=== PATIENT | male | born 1930 | race Caucasian/White ===

== ENCOUNTER 2016-12-21 14:00 | Emergency (ER) | payer OTHER ==
[2016-12-21 14:30] VITALS: TEMP 97.8; BMI 22.9
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
[2016-12-21 17:45] LABS: BASOPHIL 0.9 % (0-2.0); MCH 20.4 pg (25.7-33.7); MCHC 31.4 g/dl (32.0-35.9); MEAN PLT VOLUME 8.7 fl (7.5-11.1); NEUTROPHILS 56.3 % (42.8-82.8); PLATELET COUNT 161 K/MM3 (134-434); RDW 18.7 % (11.9-15.9); WHITE BLOOD COUNT 7.9 K/mm3 (4.0-10.0)
[2016-12-21 18:08] LABS: ALK PHOS 100 U/L (45-117); ANION GAP 5 (8-16); BILIRUBIN,TOTAL 1.1 mg/dL (0.2-1.0); CALCIUM 9.2 mg/dL (8.5-10.1); CO2 30 mmol/L (21-32); CREATININE 1.8 mg/dL (0.7-1.3); GLUCOSE,RANDOM 89 mg/dL (74-106); SGOT/AST 15 U/L (15-37); SGPT/ALT 18 U/L (12-78); TOT PROT 7.3 g/dl (6.4-8.2)
[2016-12-21 18:10] LABS: CPK 86 IU/L (39-308); TROPONIN I < 0.02 ng/ml (0.00-0.05)
[2016-12-21 18:24] LABS: PLATELET ESTIMATE ADEQUATE (NORMAL)
[2016-12-21 18:25] LABS: HYPOCHROMIA 3+; MACROCYTOSIS 1+; MICROCYTOSIS 1+; POIKILOCYTOSIS 1+; POLYCHROMASIA RARE
[2016-12-21 18:26] LABS: OVALOCYTE 1+
[2016-12-21 18:52] VITALS: BP 150/77; PULSE 55
--- NOTE | 2016-12-23 21:44 | EKG ---
Test Reason : Blood Pressure : / mmHG Vent. Rate : 049 BPM Atrial Rate : 049 BPM P-R Int : 146 ms QRS Dur : 070 ms QT Int : 434 ms P-R-T Axes : 000 028 048 degrees QTc Int : 392 ms POOR DATA QUALITY, INTERPRETATION MAY BE ADVERSELY AFFECTED SINUS BRADYCARDIA OTHERWISE NORMAL ECG WHEN COMPARED WITH ECG OF 25-JUL-2003 08:44, NO SIGNIFICANT CHANGE WAS FOUND Confirmed by OCTAVIANO PAULSON, TERESSA ([id number]) on 12/23/2016 9:44:26 PM Referred By: Confirmed By:TERESSA BRUMFIELD MD
== END 2016-12-21 18:53 | disposition home or self-care (01) ==
LOC: JERFT 14:00 → JER 14:00
DX: S29.8XXA Other specified injuries of thorax, initial encounter (principal); S21.102A Unspecified open wound of left front wall of thorax without penetration into thoracic cavity, initial encounter; W51.XXXA Accidental striking against or bumped into by another person, initial encounter; Y93.89 Activity, other specified; Y92.89 Other specified places as the place of occurrence of the external cause; I10 Essential (primary) hypertension; Z87.442 Personal history of urinary calculi
CPT/HCPCS: 36415; 71101-TC; 80053; 84484; 85025; 93005; 93010; 99283-25

== ENCOUNTER 2017-05-07 12:25 | Emergency (ER) | payer OTHER ==
[2017-05-07 12:42] VITALS: BP 146/59; PULSE 66; TEMP 97.6; BMI 22.9
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
== END 2017-05-07 14:22 | disposition home or self-care (01) ==
LOC: JERFT 12:25
CPT/HCPCS: 99281-25

== ENCOUNTER 2017-10-11 23:05 | Inpatient (IN) | payer OTHER ==
--- NOTE | 2017-10-11 23:59 | PDOC ---
History of Present Illness - General History Source: Patient Exam Limitations: No Limitations - History of Present Illness Initial Comments: 10/12/17 01:26 The patient is a 87 year old male with past medical history of HTN, OA (L. knee) , renal insufficiency and eczema presents to the emergency department via EMS s/ p a fall at 10:00 pm today. The patient reports he was trying to get up from the chair after sleeping when he tripped on shoelace leading to the fall. The patient reports pain to the L. knee, hip and foot. The patient states s/p to the fall he was unable to move, which has improved since. The patient states he called [phone] who assisted him w/ an ambulance. The patient reports associated concern of nausea. The patient states a history of chronic dehydration even after drinking 4 cups of water, no relief. The patient on baseline can ambulate without assist and lives independently. Denies fever, chills, cough or headache. Denies chest pain or sob. Denies loss of conscious. Denies head injury. Denies vomiting. Denies diarrhea or constipation. Denies dysuria, hematuria, frequency or urgency to urinate. Denies numbness, loss of sensation or tingling. Allergies: NKDA Surgical history: Cholecystectomy and Hernia repair. Social history: None reported Meds: Daily use of baby aspirin. PCP: Trish Ibrahim MD 10/12/17 03:44 <Farheen Ybarra - Last Filed: 10/12/17 03:44> - General History Source: Patient Exam Limitations: No Limitations <Juliana Chan - Last Filed: 10/12/17 04:19> - General Chief Complaint: Injury Stated Complaint: FALL Time Seen by Provider: 10/11/17 23:37 Past History <Farheen Ybarra - Last Filed: 10/12/17 03:44> - Past Medical History HTN: Yes Kidney Stones: Yes - Surgical History Cholecystectomy: Yes GI Surgery: Yes (hernia) - Suicide/Smoking/Psychosocial Hx Smoking History: Never smoked Have you smoked in the past 12 months: No Information on smoking cessation initiated: No Hx Alcohol Use: No Drug/Substance Use Hx: No Substance Use Type: None <Juliana Chan - Last Filed: 10/12/17 04:19> - Past Medical History Allergies/Adverse Reactions: Allergies Allergy/AdvReac Type Severity Reaction Status Date / Time No Known Allergies Allergy Verified 10/11/17 23:51 Home Medications: Ambulatory Orders Amlodipine Besylate 5 mg PO ASDIR 12/21/16 Losartan/Hydrochlorothiazide [Losartan-Hctz 50-12.5 mg Tab] 1 each PO ASDIR Tamsulosin HCl [Flomax] 0.4 mg PO DAILY 12/21/16 hydrOXYzine HCL [Atarax -] 10 mg PO TID 12/21/16 Review of Systems - Review of Systems Able to Perform ROS?: Yes Comments:: 10/12/17 01:28 GENERAL/CONSTITUTIONAL: No fever, no lethargy HEAD, EYES, EARS, NOSE AND THROAT: No eye discharge. No ear pain or discharge. No sore throat. CARDIOVASCULAR: No chest pain. RESPIRATORY: No cough, no wheezing. GASTROINTESTINAL: (+)nausea. No vomiting, diarrhea or constipation. GENITOURINARY: No dysuria, no change in urine output MUSCULOSKELETAL: (+) L. knee, hip and foot pain. SKIN: No rash NEUROLOGIC: No headache, loss of consciousness, irritability. ENDOCRINE: No increased thirst. No abnormal weight change. ALLERGIC/IMMUNOLOGIC: No hives or skin allergy. <Farheen Ybarra - Last Filed: 10/12/17 03:44> *Physical Exam - Vital Signs Last Vital Signs Temp Pulse Resp BP Pulse Ox 97.3 F L 68 20 153/78 100 10/11/17 23:20 10/11/17 23:20 10/11/17 23:20 10/11/17 23:20 10/11/17 23:20 - Physical Exam Comments: 10/12/17 01:30 GENERAL: The patient is in no acute distress. HEAD: Normal with no signs of trauma. EYES: PERRLA, EOMI, sclera anicteric, conjunctiva clear. ENT: Ears normal, nares patent, oropharynx clear without exudates. Moist mucous membranes. NECK: Normal range of motion, supple without lymphadenopathy, JVD, or masses. LUNGS: Breath sounds equal, clear to auscultation bilaterally. No wheezes, and no crackles. HEART:Regular rate and rhythm, normal S1 and S2 without murmur, rub or gallop. ABDOMEN: Soft, nontender, normoactive bowel sounds. No guarding, no rebound. No masses palpable. EXTREMITIES: (+) L. hip femur tenderness. Normal range of motion, no edema. No clubbing or cyanosis. No erythema. NEUROLOGICAL: Cranial nerves II through XII grossly intact. Normal speech. No focal neurological deficits. MUSCULOSKELETAL: Back non-tender to palpation, no CVA tenderness SKIN: Warm, Dry, normal turgor, no rashes or lesions noted. <Farheen Ybarra - Last Filed: 10/12/17 03:44> - Vital Signs Last Vital Signs Temp Pulse Resp BP Pulse Ox 97.3 F L 68 20 153/78 100 10/11/17 23:20 10/11/17 23:20 10/11/17 23:20 10/11/17 23:20 10/11/17 23:20 <Juliana Chan - Last Filed: 10/12/17 04:19> ED Treatment Course - LABORATORY CBC & Chemistry Diagram: 10/12/17 01:00 10/12/17 01:00 <Farheen Ybarra - Last Filed: 10/12/17 03:44> - LABORATORY CBC & Chemistry Diagram: 10/12/17 01:00 10/12/17 01:00 <Juliana Chan - Last Filed: 10/12/17 04:19> Medical Decision Making - Medical Decision Making 10/12/17 03:44 Mr Bond is an 87-year-old gentleman with a history of hypertension who presents emergency department with a complaint of left hip pain status post fall. Patient states he was in his usual state of health, attempted to get out of his chair when he was tripped on his shoelaces. He fell out of his chair and landed onto linoleum floors, striking his left hip. He's unsure if he had any head trauma. Denies a loss of consciousness. No nausea or vomiting subsequent to falling. Was unable to get up to a standing position EMS contacted On examination Left leg shortened and externally rotated RRR CTA Pelvis stable No abd tenderness or distention Will do: Labs Xray CT head and C spine Pain medications Suspect fracture 10/12/17 03:47 EKG: Sr rate of 56 bpm, axis nml, intervals nml, no ST elevations or depressions , t waves upright Laboratory Tests 10/12/17 10/12/17 01:00 01:00 WBC 11.5 H D Hgb 8.6 L D Hct 27.5 L Plt Count 145 Neutrophils % 89.1 H D Lymphocytes % 6.5 L D Sodium 141 Potassium 4.1 Chloride 106 Carbon Dioxide 29 BUN 40 H D Creatinine 1.9 H Random Glucose 132 H D Creatine Kinase 128 Troponin I < 0.02 Xray: left intertrochanteric hip fracture CXR: No pneumothorax, no effusion, no widened mediastinum Creatinine stable 10/12/17 03:[address] He Will admit to med surg Clinical Impression: left hip fracture, initial presentation 10/12/17 03:50 10/12/17 04:18 <Juliana Chan - Last Filed: 10/12/17 04:19> *DC/Admit/Observation/Transfer - Attestations Scribe Attestion: 10/12/17 01:31 Documentation prepared by Farheen Ybarra, acting as medical biller for Juliana Chan MD. <Farheen Ybarra - Last Filed: 10/12/17 03:44> - Discharge Dispostion Decision to Admit order: Yes <Juliana Chan - Last Filed: 10/12/17 04:19> Diagnosis at time of Disposition: Closed left hip fracture Qualifiers: Encounter type: initial encounter Qualified Code(s): S72.002A - Fracture of unspecified part of neck of left femur, initial encounter for closed fracture - Discharge Dispostion Condition at time of disposition: Stable
[2017-10-12] MEDS ORDERED: ACETAMINOPHEN 1000 MG/100 ML VIAL (NON FORMULARY) IVPB ONE ×2 (00:01→19:00)
[2017-10-12] MEDS ORDERED: ACETAMINOPHEN INJECTION 100 ML IVPB ONE ×2 (01:10→19:06)
[2017-10-12 01:25] LABS: BASO % 0.4 % (0-2.0); EOS % 0.4 % (0-4.5); HEMATOCRIT 27.5 % (35.4-49); HEMOGLOBIN 8.6 GM/dL (11.7-16.9); LYMPH % 6.5 % (8-40); MCH 20.4 pg (25.7-33.7); MCHC 31.4 g/dl (32.0-35.9); MEAN PLT VOLUME 8.4 fl (7.5-11.1); MONO % 3.6 % (3.8-10.2); NEUT % 89.1 % (42.8-82.8); PLATELET COUNT 145 K/MM3 (134-434); RBC 4.22 M/mm3 (4.00-5.60); RDW 18.4 % (11.9-15.9); WHITE BLOOD COUNT 11.5 K/mm3 (4.0-10.0)
[2017-10-12 01:42] LABS: ALBUMIN 3.7 g/dl (3.4-5.0); ANION GAP 6 (8-16); BLOOD UREA NITROGEN 40 mg/dL (7-18); CALCIUM 8.4 mg/dL (8.5-10.1); CHLORIDE 106 mmol/L (98-107); CO2 29 mmol/L (21-32); CREATININE 1.9 mg/dL (0.7-1.3); GLUCOSE,RANDOM 132 mg/dL (74-106); POTASSIUM 4.1 mmol/L (3.5-5.1); SGOT/AST 20 U/L (15-37); SGPT/ALT 21 U/L (12-78); SODIUM 141 mmol/L (136-145); TOT PROT 6.8 g/dl (6.4-8.2)
[2017-10-12 01:45] LABS: ALK PHOS 94 U/L (45-117)
[2017-10-12] MEDS ORDERED: morphine CARPU-JECT 4 MG/1 ML DISP.SYRIN IVPUSH ONE (02:44)
[2017-10-12] MEDS ORDERED: morphine SULFATE 4 MG/ML VIAL ONE (02:45)
[2017-10-12] MEDS ORDERED: hydrOXYzine HCL 10 MG TABLET PO PRN ×2 (03:50→19:33)
[2017-10-12] MEDS ORDERED: ACETAMINOPHEN 325 MG TABLET (FP) PO PRN ×2 (03:51→19:33)
[2017-10-12] MEDS ORDERED: oxyCODONE HCL 5 MG TABLET PO PRN ×2 (03:51→19:33)
[2017-10-12 05:58] LABS: INR 1.18 (0.82-1.09); PROTHROMBIN TIME (PATIENT) 13.3 SEC (9.7-13.0)
[2017-10-12 06:59] VITALS: BMI 22.1
[2017-10-12] MEDS ORDERED: TAMSULOSIN HCL 0.4 MG CAP.ER.24H (FP) PO SCH (08:30)
--- NOTE | 2017-10-12 09:20 | EKG ---
Test Reason : Blood Pressure : / mmHG Vent. Rate : 056 BPM Atrial Rate : 056 BPM P-R Int : 162 ms QRS Dur : 074 ms QT Int : 420 ms P-R-T Axes : 049 032 054 degrees QTc Int : 405 ms SINUS BRADYCARDIA OTHERWISE NORMAL ECG WHEN COMPARED WITH ECG OF 21-DEC-2016 17:16, NO SIGNIFICANT CHANGE WAS FOUND Confirmed by ELMER ZAVALA MD ([id number]) on 10/12/2017 9:19:27 AM Referred By: Confirmed By:ELMER ZAVALA MD
[2017-10-12] MEDS ORDERED: HEPARIN NA (PORCINE) 5,000 UNITS/ML 1ML VIAL SQ SCH (10:00)
[2017-10-12] MEDS ORDERED: amLODIPine BESYLATE 5 MG TABLET (FP) PO SCH (10:00)
[2017-10-12] MEDS ORDERED: LOSARTAN 50MG/HCTZ 12.5MG 1 TAB (FP) PO SCH (10:00)
[2017-10-12] MEDS ORDERED: D5-1/2NS+40 MEQ KCL - 40 MEQ/1,000 ML INFUS.BAG IV SCH (10:30)
--- NOTE | 2017-10-12 10:45 | PN ---
Progress Note (short form) - Note Progress Note: Pt seen and examined. He is an 87 year old Male 1 day s/p fall, with c/o pain in the left hip and anterior groin. Unable to weight bear or ambulate. PE In NAD Answering all questions appropriately LLE is mildly shortened and externally rotated LLE is NVI Xrays Show a left hip intertrochanteric femur fracture Imp 87 yo M with an acute Left hip IT fracture. Plan I spoke with PMD, Dr He Pt will likely be cleared for today NPO Hold Heparin Plan is to do a left Gamma Nail today All questions, concerns, risks, potential complications addressed
--- NOTE | 2017-10-12 10:48 | HP ---
Admitting History and Physical - Admission Chief Complaint: fall, left hip pain History of Present Illness: 87 yo male presents to hospital after a mechanical fall at home last night. He got up from his recliner chair to go to bed when he tripped on his shoelaces and fell to the floor. Notes that he could not get up, so called ambulance and came to hospital. Was in usual state of health prior to this. No chest pain, no shortness of breath, no bleeding disorder, not on any anticoagulants. Appears to have a history of anemia reviewing his old chart. 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 Home Medications - Allergies Allergies/Adverse Reactions: Allergies Allergy/AdvReac Type Severity Reaction Status Date / Time No Known Allergies Allergy Verified 10/11/17 23:51 - Home Medications Home Medications: Ambulatory Orders Amlodipine Besylate 5 mg PO ASDIR 12/21/16 Losartan/Hydrochlorothiazide [Losartan-Hctz 50-12.5 mg Tab] 1 each PO ASDIR Tamsulosin HCl [Flomax] 0.4 mg PO DAILY 12/21/16 hydrOXYzine HCL [Atarax -] 10 mg PO TID 12/21/16 Family Disease History - Family Disease History Family History: Unremarkable Review of Systems - Review of Systems Constitutional: denies: Chills, Fever, Loss of Appetite Eyes: reports: No Symptoms HENT: denies: Difficult Swallowing, Epistaxis, Throat Pain Neck: denies: Decreased ROM Cardiovascular: denies: Chest Pain, Palpitations Respiratory: denies: Cough, SOB, Wheezing Gastrointestinal: denies: Abdominal Pain, Constipation, Diarrhea, Nausea, Vomiting Genitourinary: denies: Burning, Discharge, Dysuria Physical Examination Vital Signs: Vital Signs Temperature 98.6 F 10/12/17 06:54 Pulse Rate 70 10/12/17 06:54 Respiratory Rate 18 10/12/17 06:54 Blood Pressure 147/64 10/12/17 06:54 O2 Sat by Pulse Oximetry (%) 98 10/12/17 04:52 Constitutional: Yes: Well Nourished, No Distress, Calm Eyes: Yes: Conjunctiva Clear, EOM Intact, PERRL HENT: Yes: Atraumatic, Normocephalic Neck: Yes: Supple, Trachea Midline Cardiovascular: Yes: Regular Rate and Rhythm, S1, S2. No: Murmur Respiratory: Yes: Regular, CTA Bilaterally. No: Rales, Rhonchi, Wheezes Gastrointestinal: Yes: Normal Bowel Sounds, Soft. No: Tenderness, Vomiting Extremities: Yes: Other (left leg shortened, externally rotated) Edema: No Neurological: Yes: Alert, Oriented Labs: CBC, BMP 10/12/17 01:00 10/12/17 01:00 Imaging - Results Chest X-ray: Report Reviewed (atalectasis, no infiltrates) X-ray: Report Reviewed (left hip: intracotranteric fracture) Cat Scan: Report Reviewed (CT Head: no acute infarcts or bleed CT neck, no fractures) EKG: Report Reviewed (sinus jayda at 56 bpm, no ischemic findings) Assessment/Plan Left hip fracture s/p mechanical fall Acute renal insufficiency Anemia HTN -medically stable for procedure, but will optimize with 1 unit PRBC and IVF ( renal insufficiency)
[2017-10-12] MEDS ORDERED: MIDAZOLAM HCL 2 MG/2 ML SINGLE DOSE VIAL ONE (16:38)
[2017-10-12] MEDS ORDERED: PROPOFOL 20 ML ONE (16:38)
[2017-10-12] MEDS ORDERED: SUCCINYLCHOLINE CHLORIDE 200 MG/10 ML VIAL ONE (16:38)
[2017-10-12] MEDS ORDERED: DEXAMETHASONE SOD PHOSPHATE 4 MG/1 ML VIAL ONE (17:54)
[2017-10-12] MEDS ORDERED: ceFAZolin SODIUM 1 GM VIAL ONE (17:57)
[2017-10-12] MEDS ORDERED: ceFAZolin SODIUM 1 GM VIAL IVPB ONE (17:57)
--- NOTE | 2017-10-12 18:45 | OP ---
Operative Note - Note: Operative Date: 10/12/17 Pre-Operative Diagnosis: left femur inter trochanteric fracture Operation: left Gamma Nail, IM nail Implants: [employer]les[employer] Titanium Gamma Nail, 130 degree, 115mmlag screw, 40mm distal screw Surgeon: Scott Salazar Anesthesiologist/MANAGER ORDER: Shashank Montalvo Anesthesia: General Estimated Blood Loss (mls): 500 Drains, Volume Out (mls): 0 Blood Volume Replaced (mls): 0 Fluid Volume Replaced (mls): 500 Operative Report Dictated: Yes
[2017-10-12] MEDS ORDERED: ONDANSETRON 4 MG/2 ML VIAL IVPUSH PRN (18:51)
[2017-10-12] MEDS ORDERED: LACTATED RINGERS SOLUTION 1,000 ML IV SCH (19:00)
[2017-10-13 07:15] LABS: BASO % 0.1 % (0-2.0); HEMATOCRIT 21.6 % (35.4-49); LYMPH % 11.9 % (8-40); MCH 21.4 pg (25.7-33.7); MCHC 32.3 g/dl (32.0-35.9); MEAN CELL VOLUME 66.3 fl (80-96); MEAN PLT VOLUME 8.5 fl (7.5-11.1); PLATELET COUNT 92 K/MM3 (134-434); RBC 3.26 M/mm3 (4.00-5.60); RDW 18.9 % (11.9-15.9); WHITE BLOOD COUNT 9.9 K/mm3 (4.0-10.0)
[2017-10-13 07:36] LABS: ALBUMIN 2.6 g/dl (3.4-5.0); ANION GAP 5 (8-16); BILIRUBIN,TOTAL 0.8 mg/dL (0.2-1.0); BLOOD UREA NITROGEN 40 mg/dL (7-18); CALCIUM 7.9 mg/dL (8.5-10.1); CHLORIDE 109 mmol/L (98-107); CO2 30 mmol/L (21-32); CREATININE 1.9 mg/dL (0.7-1.3); GLUCOSE,RANDOM 217 mg/dL (74-106); POTASSIUM 5.1 mmol/L (3.5-5.1); SGOT/AST 31 U/L (15-37); SGPT/ALT 35 U/L (12-78); SODIUM 144 mmol/L (136-145)
[2017-10-13 07:37] LABS: ALK PHOS 72 U/L (45-117); TOT PROT 5.2 g/dl (6.4-8.2)
[2017-10-13] MEDS: TAMSULOSIN HCL 0.4 MG CAP.ER.24H (FP) PO SCH (09:00)
[2017-10-13] MEDS: LOSARTAN 50MG/HCTZ 12.5MG 1 TAB (FP) PO SCH (12:07)
[2017-10-13] MEDS: amLODIPine BESYLATE 5 MG TABLET (FP) PO SCH (12:08)
--- NOTE | 2017-10-13 12:11 | OP ---
DATE OF OPERATION: 10/12/2017 PREOPERATIVE DIAGNOSIS: Left femur fracture/intertrochanteric hip fracture. POSTOPERATIVE DIAGNOSIS: Left femur fracture/intertrochanteric hip fracture. PROCEDURE: Left Gamma nail/intramedullary nail. SURGEON: Scott Salazar MD BARRELHEAD INSPECTOR: None. ANESTHESIA: Shashank Montalvo MD; general anesthesia. DRAINS: None. COMPLICATIONS: None. FLUID REPLACEMENT: 500 mL. BLOOD LOSS: 500 mL (mostly fracture hematoma). BLOOD GIVEN: One unit packed red blood cells in PACU. COMPLICATIONS: None. This patient is an 87-year-old male with a preoperative history of a left hip intertrochanteric hip fracture. After understanding the potential risks, complications, alternatives, and benefits of surgical versus nonsurgical treatment, the patient and his family elect to have him undergo this procedure. All questions and concerns were addressed. PROCEDURE: Patient was brought to the operating room. Peripheral IV placed, IV sedation given. One gram of IV Ancef was given. General anesthesia was induced. The patient had ample Webril placed around the peroneal post in both ankles. The patient was placed onto the fracture table with a slight longitudinal traction and internal rotation. X-rays were taken documenting excellent reduction of the fracture in the AP and lateral planes. Next, an incision was made over the proximal aspect of the greater trochanter. Subcutaneous hemostasis was achieved with a Bovie cautery, dissection done through the lateral fascia to the top of the greater trochanter. A Dee elevator was used to take off the soft tissue from the starting point. Under direct visualization a partially threaded guide-wire was placed through the standard starting position, into the proximal femur, passed the fracture fragment into the medullary canal. It was documented to be in excellent position in AP, lateral and multiple oblique planes. Next, we used the proximal 17 mm cannulated reamer and put in a Iglesia titanium G3 Gamma nail, 130 degree, 180 mm trochanteric nail. This was put in cannulated fashion to appropriate depth and using the external guide in a standard fashion, first using external jig, using a threaded guide-wire, replaced the lag screw, guide pin to the lateral aspect of the femur. The prosthesis and up to the femoral neck and head, looked to be in excellent position in a center central position, perhaps slightly posterior and slightly inferior in both AP and lateral planes. We measured it at 115 mm screw. The cannulated drill was used to drill it to this leg and then we put in a 115 mm titanium lag screw. We achieved excellent compression and overall the position of the hardware in the fracture fragments looked excellent. We locked it in place with a proximal set screw, we altered the external jig to the static position and using the standard technique put in a distal interlocking screw under direct visualization of 40 mm in length. This locked the nail distally. We removed the external jig. We repeated x-rays in AP, lateral and multiple oblique planes and overall I was quite happy with the position of the fracture reduction, the length of the screw, the position of the hardware. Final x-rays were taken. The area was copiously irrigated and washed out. The deep fascial layer was closed with 0 Vicryl sutures. The deep dermal layer was closed with 2-0 Vicryl. Final skin approximation was done with joe. The area was then washed and dried, covered with Xeroform gauze, 4 x 4 gauze, ABD and tape. Patient was taken down off the fracture table in stable condition. There were no complications during the case. Total operative time was about 20 minutes. Beverly [id number]
--- NOTE | 2017-10-13 12:55 | PN ---
Progress Note (short form) - Note Progress Note: Pt seen and examined. He is comfortable, no SOB, no CP, NAD. States left hip pain much better. AVSS H/H decreased to 7/21.6 PE LLE looks good NVI Dressing with mild amount of serous drainage Good ROM, less pain Imp Doing well on POD #1 s/p left Gamma Nail, low H/H from fracture hematoma. Rec Another transfusion of 1-2 units PRBC as per PMD. Check H/H tonight P.T. tomorrow, PWB LLE
--- NOTE | 2017-10-13 13:30 | PN ---
Progress Note, Physician History of Present Illness: Feels OK. Still has some soreness in knee, but hip feeling better after the surgery. Blood counts low today so will need another transfusion. - Current Medication List Current Medications: Active Medications Acetaminophen (Tylenol -) 650 mg PO Q4H PRN PRN Reason: PAIN LEVEL 1-5 Amlodipine Besylate (Norvasc -) 5 mg PO DAILY [facility] Last Admin: 10/13/17 12:08 Dose: 5 mg HCTZ/Losartan Potassium (Hyzaar -) 1 tab PO DAILY [facility] Last Admin: 10/13/17 12:07 Dose: 1 tab Hydroxyzine HCl (Atarax -) 10 mg PO Q8H PRN PRN Reason: FOR ITCHING Dextrose/Sodium Chloride (D5-1/2ns+40 Meq Kcl -) 40 meq in 1,000 mls @ 75 mls/ hr IV ASDIR [facility] Ondansetron HCl (Zofran Injection) 4 mg IVPUSH Q6H PRN PRN Reason: NAUSEA AND/OR VOMITING Oxycodone HCl (Roxicodone -) 5 mg PO Q4H PRN PRN Reason: PAIN LEVEL 6-10 Tamsulosin HCl (Flomax -) 0.4 mg PO DAILY@0830 [facility] Last Admin: 10/13/17 09:00 Dose: 0.4 mg - Objective Vital Signs: Vital Signs Temperature 98.2 F 10/13/17 05:30 Pulse Rate 69 10/13/17 05:30 Respiratory Rate 18 10/12/17 22:00 Blood Pressure 120/54 10/13/17 05:30 O2 Sat by Pulse Oximetry (%) 100 10/12/17 21:00 Constitutional: Yes: No Distress, Calm Eyes: Yes: Conjunctiva Clear, EOM Intact, PERRL HENT: Yes: Atraumatic, Normocephalic Neck: Yes: Supple, Trachea Midline Cardiovascular: Yes: Regular Rate and Rhythm, S1, S2. No: Murmur Respiratory: Yes: Regular, CTA Bilaterally. No: Rales, Rhonchi, Wheezes Gastrointestinal: Yes: Normal Bowel Sounds, Soft. No: Distention, Tenderness Edema: No Neurological: Yes: Alert, Oriented Labs: CBC, BMP 10/13/17 07:00 10/13/17 07:00 INR, PTT INR 1.18 (0.82-1.09) H 10/12/17 04:55 Assessment/Plan Left hip fracture s/p mechanical fall chronic renal insufficiency Anemia HTN -cont post-op care -transfuse 2 U PRBC
--- NOTE | 2017-10-13 15:09 | PN ---
Progress Note (short form) - Note Progress Note: POD #1 - s/p left hip gamma nail under GA. VSS. Pt. resting comfortably in bed, currently getting PRBC transfusion for low H/H. No complaints. No anesthetic complications noted. Continue current care.
[2017-10-14] MEDS: D5-1/2NS+40 MEQ KCL - 40 MEQ/1,000 ML INFUS.BAG IV SCH (00:36)
[2017-10-14 08:08] LABS: BASO % 0.6 % (0-2.0); EOS % 2.7 % (0-4.5); HEMATOCRIT 27.5 % (35.4-49); HEMOGLOBIN 9.2 GM/dL (11.7-16.9); LYMPH % 16.4 % (8-40); MCH 23.9 pg (25.7-33.7); MCHC 33.5 g/dl (32.0-35.9); MEAN CELL VOLUME 71.3 fl (80-96); MEAN PLT VOLUME 8.4 fl (7.5-11.1); MONO % 10.1 % (3.8-10.2); NEUT % 70.2 % (42.8-82.8); PLATELET COUNT 95 K/MM3 (134-434); RBC 3.86 M/mm3 (4.00-5.60); RDW 20.8 % (11.9-15.9); WHITE BLOOD COUNT 10.1 K/mm3 (4.0-10.0)
[2017-10-14 08:30] LABS: ALBUMIN 2.6 g/dl (3.4-5.0); ANION GAP 5 (8-16); BLOOD UREA NITROGEN 34 mg/dL (7-18); CALCIUM 7.9 mg/dL (8.5-10.1); CHLORIDE 108 mmol/L (98-107); CO2 31 mmol/L (21-32); GLUCOSE,RANDOM 117 mg/dL (74-106); POTASSIUM 4.9 mmol/L (3.5-5.1); SODIUM 144 mmol/L (136-145)
[2017-10-14 08:35] LABS: ALK PHOS 66 U/L (45-117); BILIRUBIN,TOTAL 1.1 mg/dL (0.2-1.0); CREATININE 1.5 mg/dL (0.7-1.3); SGOT/AST 21 U/L (15-37); SGPT/ALT 23 U/L (12-78); TOT PROT 5.3 g/dl (6.4-8.2)
--- NOTE | 2017-10-14 08:44 | PN ---
Progress Note (short form) - Note Progress Note: Ortho Pt seen and examined s/p left IM gamma nail pod #2 Selected Entries 10/14/17 08:06 Temperature 98.1 F Pulse Rate 69 Respiratory 18 Rate Blood Pressure 140/61 Laboratory Tests 10/14/17 07:26 WBC 10.1 H Hgb 9.2 L D Hct 27.5 L D Plt Count 95 L dressing c/d/i, calf soft, nt nvi a/p PT PWB dvt ppx pain control d/c planning
[2017-10-14] MEDS: LOSARTAN 50MG/HCTZ 12.5MG 1 TAB (FP) PO SCH (09:56)
[2017-10-14] MEDS: amLODIPine BESYLATE 5 MG TABLET (FP) PO SCH (09:56)
[2017-10-14] MEDS: TAMSULOSIN HCL 0.4 MG CAP.ER.24H (FP) PO SCH (09:56)
--- NOTE | 2017-10-14 10:01 | PN ---
Progress Note, Physician Chief Complaint: Pt lying in bed in no acute distress. Reports pain adequately controlled. C/o 6/ 10 left hip pain upon movement. Otherwise, denies chest pain, sob, n/v/d, or unilateral weakness. - Current Medication List Current Medications: Active Medications Acetaminophen (Tylenol -) 650 mg PO Q4H PRN PRN Reason: PAIN LEVEL 1-5 Last Admin: 10/14/17 09:56 Dose: 650 mg Amlodipine Besylate (Norvasc -) 5 mg PO DAILY [facility] Last Admin: 10/14/17 09:56 Dose: 5 mg HCTZ/Losartan Potassium (Hyzaar -) 1 tab PO DAILY [facility] Last Admin: 10/14/17 09:56 Dose: 1 tab Hydroxyzine HCl (Atarax -) 10 mg PO Q8H PRN PRN Reason: FOR ITCHING Ondansetron HCl (Zofran Injection) 4 mg IVPUSH Q6H PRN PRN Reason: NAUSEA AND/OR VOMITING Oxycodone HCl (Roxicodone -) 5 mg PO Q4H PRN PRN Reason: PAIN LEVEL 6-10 Last Admin: 10/14/17 09:55 Dose: 5 mg Tamsulosin HCl (Flomax -) 0.4 mg PO DAILY@0830 [facility] Last Admin: 10/14/17 09:56 Dose: 0.4 mg - Objective Vital Signs: Vital Signs Temperature 98.1 F 10/14/17 08:06 Pulse Rate 69 10/14/17 08:06 Respiratory Rate 18 10/14/17 08:06 Blood Pressure 140/61 10/14/17 08:06 O2 Sat by Pulse Oximetry (%) 100 10/14/17 08:47 Constitutional: Yes: Well Nourished, No Distress, Calm Cardiovascular: Yes: WNL, Regular Rate and Rhythm. No: Murmur Respiratory: Yes: WNL, Regular, CTA Bilaterally. No: Accessory Muscle Use, Rales, Rhonchi, SOB, Tachypnea Gastrointestinal: Yes: WNL, Normal Bowel Sounds, Soft. No: Distention, Tenderness Genitourinary: Yes: WNL Edema: Yes Edema: LLE: Trace Integumentary: Yes: Incision Wound/Incision: Yes: Dressing Dry and Intact (mild serosangenuous drainage Left hip dressing) Neurological: Yes: WNL, Alert, Oriented Psychiatric: Yes: WNL, Alert, Oriented Labs: CBC, BMP 10/14/17 07:26 10/14/17 07:26 INR, PTT INR 1.18 (0.82-1.09) H 10/12/17 04:55 Problem List - Problems (1) Status post hip surgery Assessment/Plan: POD 2 c/b post op anemia, hemodynamically stable, s/p prbcs transfusion pain control- luther/tylenol prn Incentive spirometer DVT prophylaxis- Lovenox PT as tolerated SNF placement Code(s): Z98.890 - OTHER SPECIFIED POSTPROCEDURAL STATES (2) Closed left hip fracture Assessment/Plan: intracotranteric fracture of left hip s/p mechanical fall plan as above Code(s): S72.002A - FRACTURE OF UNSP PART OF NECK OF LEFT FEMUR, INIT Qualifiers: Encounter type: initial encounter Qualified Code(s): S72.002A - Fracture of unspecified part of neck of left femur, initial encounter for closed fracture (3) Acute blood loss anemia Assessment/Plan: hg/hct stable s/p 3 units prbcs hemodynamically stable po iron started will monitor Code(s): D62 - ACUTE POSTHEMORRHAGIC ANEMIA (4) HTN (hypertension) Assessment/Plan: controlled continue amlodipine/hyzaar low na diet will monitor Code(s): I10 - ESSENTIAL (PRIMARY) HYPERTENSION Qualifiers: Hypertension type: essential hypertension Qualified Code(s): I10 - Essential (primary) hypertension (5) CKD (chronic kidney disease) Assessment/Plan: acute on chronic, improved s/p ivf hydration at baseline now d/c ivf will monitor Code(s): N18.9 - CHRONIC KIDNEY DISEASE, UNSPECIFIED Qualifiers: Chronic kidney disease stage: stage 3 (moderate) Qualified Code(s): N18.3 - Chronic kidney disease, stage 3 (moderate) (6) BPH (benign prostatic hyperplasia) Assessment/Plan: stable continue flomax Code(s): N40.0 - BENIGN PROSTATIC HYPERPLASIA WITHOUT LOWER URINRY TRACT SYMP Qualifiers: Lower urinary tract symptom presence: symptoms absent Qualified Code(s): N40.0 - Benign prostatic hyperplasia without lower urinary tract symptoms Assessment/Plan Dispo: SNF, discussed with pt and his niece Cassi regarding the plan and the need for snf post hospital stay. SW informed. Awaiting SNF placement
[2017-10-14] MEDS: ENOXAPARIN NA (PORCINE) 30 MG/0.3 ML DISP.SYRIN SQ SCH (10:59)
[2017-10-14] MEDS ORDERED: oxyCODONE HCL 5 MG TABLET PO PRN (11:11)
[2017-10-14] MEDS ORDERED: SENNOSIDES 8.6MG TABLET (FP) PO PRN (11:30)
[2017-10-14] MEDS: POLYETHYLENE GLYCOL 3350 119 GM BTL PO SCH ×2 (12:35→21:50)
[2017-10-14] MEDS: DOCUSATE SODIUM 100 MG CAPSULE (FP) PO SCH ×2 (13:36→21:50)
[2017-10-14] MEDS: FERROUS SO4 325 MG TABLET (FP) PO SCH ×2 (13:36→17:09)
[2017-10-15] MEDS: DOCUSATE SODIUM 100 MG CAPSULE (FP) PO SCH ×3 (05:38→22:01)
[2017-10-15 08:45] LABS: BASO % 0.5 % (0-2.0); EOS % 5.7 % (0-4.5); HEMATOCRIT 28.2 % (35.4-49); HEMOGLOBIN 9.3 GM/dL (11.7-16.9); LYMPH % 22.8 % (8-40); MCH 23.6 pg (25.7-33.7); MEAN CELL VOLUME 71.5 fl (80-96); MEAN PLT VOLUME 8.3 fl (7.5-11.1); MONO % 9.5 % (3.8-10.2); NEUT % 61.5 % (42.8-82.8); PLATELET COUNT 130 K/MM3 (134-434); RBC 3.95 M/mm3 (4.00-5.60); RDW 21.3 % (11.9-15.9); WHITE BLOOD COUNT 9.6 K/mm3 (4.0-10.0)
[2017-10-15 09:07] LABS: CHLORIDE 101 mmol/L (98-107); POTASSIUM 4.5 mmol/L (3.5-5.1); SODIUM 140 mmol/L (136-145)
[2017-10-15 09:31] LABS: ANION GAP 8 (8-16); BLOOD UREA NITROGEN 34 mg/dL (7-18); CALCIUM 7.9 mg/dL (8.5-10.1); CO2 31 mmol/L (21-32); CREATININE 1.5 mg/dL (0.7-1.3); GLUCOSE,RANDOM 106 mg/dL (74-106)
[2017-10-15] MEDS ORDERED: BISACODYL 5 MG TABLET.DR (FP) PO ONE (10:00)
[2017-10-15] MEDS: ENOXAPARIN NA (PORCINE) 30 MG/0.3 ML DISP.SYRIN SQ SCH (10:22)
[2017-10-15] MEDS: FERROUS SO4 325 MG TABLET (FP) PO SCH ×2 (10:22→17:38)
[2017-10-15] MEDS: POLYETHYLENE GLYCOL 3350 119 GM BTL PO SCH ×2 (10:22→22:01)
[2017-10-15] MEDS: amLODIPine BESYLATE 5 MG TABLET (FP) PO SCH (10:22)
[2017-10-15] MEDS: LOSARTAN 50MG/HCTZ 12.5MG 1 TAB (FP) PO SCH (10:22)
[2017-10-15] MEDS: TAMSULOSIN HCL 0.4 MG CAP.ER.24H (FP) PO SCH (10:22)
--- NOTE | 2017-10-15 10:54 | PN ---
Progress Note (short form) - Note Progress Note: Ortho Pt seen and examined s/p left IM gamma nail pod #3 Selected Entries 10/15/17 05:53 Temperature 98.6 F Pulse Rate 67 Respiratory 18 Rate Blood Pressure 145/75 Laboratory Tests 10/15/17 07:45 WBC 9.6 Hgb 9.3 L Hct 28.2 L Plt Count 130 L D dressing c/d/i, calf soft, nt nvi a/p PT PWB dvt ppx pain control d/c planning
[2017-10-15 11:11] LABS: ANISOCYTOSIS 1+; MACROCYTOSIS 1+; PLATELET ESTIMATE DECREASED
[2017-10-15] MEDS ORDERED: BISACODYL 10 MG SUPP.RECT RC ONE (13:15)
[2017-10-15] MEDS ORDERED: MAGNESIUM CITRATE 300 ML BOTTLE PO ONE (14:30)
--- NOTE | 2017-10-15 15:22 | PN ---
Progress Note, Physician Chief Complaint: Pt sitting in chair in no acute distress. Reports pain adequately controlled. Has not had BM yet. Otherwise, denies chest pain, sob, n/v/d, or unilateral weakness. - Current Medication List Current Medications: Active Medications Acetaminophen (Tylenol -) 650 mg PO Q4H PRN PRN Reason: PAIN LEVEL 1-5 Last Admin: 10/14/17 09:56 Dose: 650 mg Amlodipine Besylate (Norvasc -) 5 mg PO DAILY [facility] Last Admin: 10/15/17 10:22 Dose: 5 mg Docusate Sodium (Colace -) 100 mg PO TID [facility] Last Admin: 10/15/17 05:38 Dose: 100 mg Enoxaparin Sodium (Lovenox -) 30 mg SQ DAILY [facility] Last Admin: 10/15/17 10:22 Dose: 30 mg Ferrous Sulfate (Feosol -) 325 mg PO BIDWM [facility] Last Admin: 10/15/17 10:22 Dose: 325 mg HCTZ/Losartan Potassium (Hyzaar -) 1 tab PO DAILY [facility] Last Admin: 10/15/17 10:22 Dose: 1 tab Hydroxyzine HCl (Atarax -) 10 mg PO Q8H PRN PRN Reason: FOR ITCHING Ondansetron HCl (Zofran Injection) 4 mg IVPUSH Q6H PRN PRN Reason: NAUSEA AND/OR VOMITING Oxycodone HCl (Roxicodone -) 2.5 mg PO Q4H PRN PRN Reason: PAIN LEVEL 6-10 Polyethylene Glycol (Miralax (For Daily Use) -) 17 gm PO BID [facility] Last Admin: 10/15/17 10:22 Dose: 17 gm Senna (Senna -) 2 tab PO HS PRN PRN Reason: CONSTIPATION Tamsulosin HCl (Flomax -) 0.4 mg PO DAILY@0830 [facility] Last Admin: 10/15/17 10:22 Dose: 0.4 mg - Objective Vital Signs: Vital Signs Temperature 98.7 F 10/15/17 14:00 Pulse Rate 67 10/15/17 05:53 Respiratory Rate 18 10/15/17 05:53 Blood Pressure 145/75 10/15/17 05:53 O2 Sat by Pulse Oximetry (%) 98 10/14/17 21:00 Constitutional: Yes: Well Nourished, No Distress Cardiovascular: Yes: WNL, Regular Rate and Rhythm. No: Murmur Respiratory: Yes: WNL, Regular, CTA Bilaterally. No: Accessory Muscle Use, SOB , Tachypnea, Wheezes Gastrointestinal: Yes: WNL, Normal Bowel Sounds, Soft. No: Abdomen, Obese, Distention, Tenderness Genitourinary: Yes: WNL Edema: Yes Edema: LLE: 1+ Wound/Incision: Yes: Clean/Dry, Dressing Dry and Intact Neurological: Yes: WNL, Alert, Oriented Psychiatric: Yes: WNL, Alert, Oriented Labs: CBC, BMP 10/15/17 07:45 10/15/17 07:45 INR, PTT INR 1.18 (0.82-1.09) H 10/12/17 04:55 Problem List - Problems (1) Status post hip surgery Code(s): Z98.890 - OTHER SPECIFIED POSTPROCEDURAL STATES (2) Closed left hip fracture Code(s): S72.002A - FRACTURE OF UNSP PART OF NECK OF LEFT FEMUR, INIT Qualifiers: Encounter type: initial encounter Qualified Code(s): S72.002A - Fracture of unspecified part of neck of left femur, initial encounter for closed fracture (3) Acute blood loss anemia Code(s): D62 - ACUTE POSTHEMORRHAGIC ANEMIA (4) HTN (hypertension) Code(s): I10 - ESSENTIAL (PRIMARY) HYPERTENSION Qualifiers: Hypertension type: essential hypertension Qualified Code(s): I10 - Essential (primary) hypertension (5) CKD (chronic kidney disease) Code(s): N18.9 - CHRONIC KIDNEY DISEASE, UNSPECIFIED Qualifiers: Chronic kidney disease stage: stage 3 (moderate) Qualified Code(s): N18.3 - Chronic kidney disease, stage 3 (moderate) (6) BPH (benign prostatic hyperplasia) Code(s): N40.0 - BENIGN PROSTATIC HYPERPLASIA WITHOUT LOWER URINRY TRACT SYMP Qualifiers: Lower urinary tract symptom presence: symptoms absent Qualified Code(s): N40.0 - Benign prostatic hyperplasia without lower urinary tract symptoms (7) Constipation Code(s): K59.00 - CONSTIPATION, UNSPECIFIED Qualifiers: Constipation type: drug induced constipation Qualified Code(s): K59.03 - Drug induced constipation Assessment/Plan (1) Status post hip surgery Assessment/Plan: POD 3 h/h stable pain control- luther/tylenol prn Incentive spirometer DVT prophylaxis- Lovenox PT as tolerated SNF placement Code(s): Z98.890 - OTHER SPECIFIED POSTPROCEDURAL STATES (2) Closed left hip fracture Assessment/Plan: intracotranteric fracture of left hip s/p mechanical fall plan as above Code(s): S72.002A - FRACTURE OF UNSP PART OF NECK OF LEFT FEMUR, INIT Qualifiers: Encounter type: initial encounter Qualified Code(s): S72.002A - Fracture of unspecified part of neck of left femur, initial encounter for closed fracture (3) Acute blood loss anemia Assessment/Plan: hg/hct stable s/p 3 units prbcs hemodynamically stable po iron will monitor Code(s): D62 - ACUTE POSTHEMORRHAGIC ANEMIA (4) HTN (hypertension) Assessment/Plan: controlled continue amlodipine/hyzaar low na diet will monitor Code(s): I10 - ESSENTIAL (PRIMARY) HYPERTENSION Qualifiers: Hypertension type: essential hypertension Qualified Code(s): I10 - Essential (primary) hypertension (5) CKD (chronic kidney disease) Assessment/Plan: as baseline Code(s): N18.9 - CHRONIC KIDNEY DISEASE, UNSPECIFIED Qualifiers: Chronic kidney disease stage: stage 3 (moderate) Qualified Code(s): N18.3 - Chronic kidney disease, stage 3 (moderate) (6) BPH (benign prostatic hyperplasia) Assessment/Plan: stable continue flomax Code(s): N40.0 - BENIGN PROSTATIC HYPERPLASIA WITHOUT LOWER URINRY TRACT SYMP Qualifiers: Lower urinary tract symptom presence: symptoms absent Qualified Code(s): N40.0 - Benign prostatic hyperplasia without lower urinary tract symptoms (7) Constipation Assessment/Plan: No bm since admission senna/miralax/colace dulcolax po x 1 dulcolax prx1 mag citrate x 1 enema x 1 awaiting BM Code(s): K59.00 - CONSTIPATION, UNSPECIFIED Qualifiers: Constipation type: drug induced constipation Qualified Code(s): K59.03 - Drug induced constipation Assessment/Plan Dispo: SNF, awaiting BM.
[2017-10-16] MEDS: DOCUSATE SODIUM 100 MG CAPSULE (FP) PO SCH ×2 (05:36→14:16)
[2017-10-16] MEDS: FERROUS SO4 325 MG TABLET (FP) PO SCH (08:20)
[2017-10-16] MEDS: TAMSULOSIN HCL 0.4 MG CAP.ER.24H (FP) PO SCH (08:20)
--- NOTE | 2017-10-16 09:56 | PN ---
Progress Note (short form) - Note Progress Note: AVSS COMFORTABLE BANDAGES DRY AND INTACT CALF SOFT AND NT NVI IMP: ORTHOPEDICALLY STABLE PLAN: OOB, PT-WBAT, DC PLANNING
--- NOTE | 2017-10-16 10:10 | DS ---
Physical Examination Vital Signs: Vital Signs Temperature 97.8 F 10/16/17 08:56 Pulse Rate 70 10/16/17 08:56 Respiratory Rate 20 10/16/17 08:56 Blood Pressure 129/44 10/16/17 08:56 O2 Sat by Pulse Oximetry (%) 99 10/15/17 21:00 Constitutional: Yes: Well Nourished, No Distress Cardiovascular: Yes: WNL, Regular Rate and Rhythm. No: Murmur Respiratory: Yes: WNL, Regular, CTA Bilaterally. No: Accessory Muscle Use, SOB , Tachypnea, Wheezes Gastrointestinal: Yes: WNL, Normal Bowel Sounds, Soft. No: Distention, Tenderness Renal/: Yes: WNL Edema: Yes Edema: LLE: 1+ Integumentary: Yes: Incision Wound/Incision: Yes: Clean/Dry, Dressing Dry and Intact Neurological: Yes: WNL, Alert, Oriented Psychiatric: Yes: WNL, Alert, Oriented Labs: CBC, BMP 10/15/17 07:45 10/15/17 07:45 Discharge Summary Reason For Visit: CLOSED FRACTURE OF LEFT HIP Current Active Problems Acute blood loss anemia (Acute) BPH (benign prostatic hyperplasia) (Acute) CKD (chronic kidney disease) (Acute) Closed left hip fracture (Acute) Constipation (Acute) HTN (hypertension) (Acute) Status post hip surgery (Acute) Hospital Course: is an 87 year old male who came with a intracotranteric fracture of left hip after mechanical fall. S/p ORIF left hip. complicated by post op anemia, transfused 3 units prbcs, hg/hct stable now. pre-renal juan josé at admission , now at baseline s/p ivf. Pain adequately controlled on current regimen. Working well with PT. Pt had constipation yesterday, now successfully had a BM. Per , for dvt prophylaxis, Aspirin 325mg daily x 1 month. Protonix added for gi prophylaxis in this elderly pt. Pt is medically cleared for d/c.f/ u as directed. Condition: Stable - Instructions Diet, Activity, Other Instructions: resume diet activity as tolerated- PT Aspirin 325mg DAILY X 1 MONTH f/u as directed Referrals: Scott Salazar MD [Staff Physician] - 2 Weeks Wero He MD [Staff Physician] - 1 Week Disposition: ASSISTED FACILITY - Home Medications Comprehensive Discharge Medication List: Ambulatory Orders Amlodipine Besylate 5 mg PO ASDIR 12/21/16 Losartan/Hydrochlorothiazide [Losartan-Hctz 50-12.5 mg Tab] 1 each PO ASDIR Tamsulosin HCl [Flomax -] 0.4 mg PO DAILY 12/21/16 hydrOXYzine HCL [Atarax -] 10 mg PO TID 12/21/16 Acetaminophen [Tylenol .Regular Strength -] 650 mg PO Q4H PRN tablet 10/16/17 Aspirin Coated [Ecotrin -] 325 mg PO DAILY 30 Days #7 tablet. 10/16/17 Docusate Sodium [Colace -] 100 mg PO TID capsule 10/16/17 Ferrous Sulfate [Feosol] 325 mg PO BIDWM 14 Days ud 10/16/17 Polyethylene Glycol 3350 [Miralax 119 gm Btl -] 17 gm PO BID bottle 10/16/17 Sennosides [Senna -] 2 tab PO HS PRN tablet 10/16/17 oxyCODONE HCL [Roxicodone -] 2.5 mg PO Q4H PRN tablet MDD 20 10/16/17
[2017-10-16] MEDS: amLODIPine BESYLATE 5 MG TABLET (FP) PO SCH (10:47)
[2017-10-16] MEDS: POLYETHYLENE GLYCOL 3350 119 GM BTL PO SCH (10:47)
[2017-10-16] MEDS: LOSARTAN 50MG/HCTZ 12.5MG 1 TAB (FP) PO SCH (10:47)
[2017-10-16] MEDS: ENOXAPARIN NA (PORCINE) 30 MG/0.3 ML DISP.SYRIN SQ SCH (10:47)
[2017-10-16 14:02] VITALS: BP 134/64; PULSE 64; TEMP 98.1
== END 2017-10-16 14:20 | DRG 481 ==
LOC: JER 10-12 00:19 → JERBED 10-12 03:51 → J8W 10-12 06:00 → J6S 10-12 19:08
PROVIDERS: ADMIT Specialist; ATTEND Specialist
PROC: 30233N1 Transfusion of Nonautologous Red Blood Cells into Peripheral Vein, Percutaneous Approach (ICD-10-PCS; 2017-10-12)
PROC: 0QS706Z Reposition Left Upper Femur with Intramedullary Internal Fixation Device, Open Approach (ICD-10-PCS; principal; 2017-10-12 16:41)
DX: S72.142A Displaced intertrochanteric fracture of left femur, initial encounter for closed fracture (principal); D62 Acute posthemorrhagic anemia; N17.9 Acute kidney failure, unspecified; M17.12 Unilateral primary osteoarthritis, left knee; Z87.442 Personal history of urinary calculi; W01.0XXA Fall on same level from slipping, tripping and stumbling without subsequent striking against object, initial encounter; Y92.098 Other place in other non-institutional residence as the place of occurrence of the external cause; N40.0 Benign prostatic hyperplasia without lower urinary tract symptoms; I12.9 Hypertensive chronic kidney disease with stage 1 through stage 4 chronic kidney disease, or unspecified chronic kidney disease; N18.3 Chronic kidney disease, stage 3 (moderate); K59.03 Drug induced constipation
CPT/HCPCS: 36415; 36430; 70450-TC; 71045-TC-FY; 72125-TC; 73523-TC-FY; 73552-TC-LT-FY; 76000-TC-FY; 80048; 80053; 82550; 82962; 84484; 85025; 85610; 86922; 93005; 93010; 94010; 94760; 97116-GP; 97161-GP; 99283-25; J0131; P9038; P9058